=== PATIENT | female | born 1950 | race Caucasian/White ===

== ENCOUNTER 2019-10-03 12:05 | Day surgery (SDC) | payer MEDICARE, MEDICAID ==
[~2019-10-03 12:05] MED LIST: CHONDR SU A NA/HYALUR INTRAOC KIT (SURGICARE) ONE; EPINEPHRINE INJ/PF 1 MG/1 ML AMPULE ONE; KETOROLAC TROMETHAMINE 0.45% 4 DROP/0.4 ML DROPERETTE OD PRN; LIDOCAINE 1% INJ-PF (10 MG/ML) 30 ML SDV ONE
[2019-10-03] MEDS: TROPICAMIDE 1% OPH SOLN 15 ML OD PRN ×3 (12:45→13:18)
[2019-10-03] MEDS: TETRACAINE HCL 0.5% OPH SOLN 4 ML OD PRN ×3 (12:45→13:21)
[2019-10-03] MEDS: BESIFLOXACIN HCL 0.6% OPH SUSP 5 ML BOTTLE OD PRN ×4 (12:46→14:06)
[2019-10-03] MEDS: CYCLOPENTOLATE 0.2%/PHENYLEPHRINE 1% OPH SOLN 2 ML OD PRN ×3 (12:47→13:18)
[2019-10-03] MEDS ORDERED: MIDAZOLAM 2 MG/2 ML INJ ONE (12:56)
[2019-10-03] MEDS ORDERED: CHONDR SU A NA/HYALUR SOD 0.5 ML DISP.SYRIN ONE (13:53)
[2019-10-03] MEDS: DORZOLAMIDE HCL 2%/TIMOLOL MALEAT 0.5% OPH SOLN 10 ML OD PRN ×2 (14:06)
--- NOTE | 2019-10-04 22:38 | Operative Report ---
Operative Report-[facility] Operative Report: PREOPERATIVE DIAGNOSIS: Nuclear, cortical and posterior subcapsular cataract, right eye POSTOPERATIVE DIAGNOSIS: Nuclear, cortical and posterior subcapsular cataracts, right eye PROCEDURE: Phacoemulsification and posterior chamber intraocular lens implant, right eye PROCEDURE DATE: [October 03, 2019] SURGEON: Joey Beatty MD Next PRODUCT/DEVICE TECHNOLOGIST: [Hedy] ANESTHESIA: Topical with IV sedation next COMPLICATIONS: None TISSUE TO PATHOLOGY: None ESTIMATED BLOOD LOSS: None INDICATION FOR SURGERY: [Ms. Mares is a 69 year old female] Who presents to our clinic complaining of difficulty seeing, to read and drive due to blurry vision in both eyes. On examination, she was found to have best corrected visual acuity of [20/50] in the right eye. Ophthalmoscopy revealed a [+2] nuclear, [+2] corneal degeneration, [+1] posterior subcapsular cataract in the right eye with normal appearing cornea, vitreous, retina and optic nerve. I discussed the findings of the exam with the patient. We discussed the risks, benefits and alternatives of cataract extraction and intraocular lens implant in the right eye as a means of improving her vision. Risks that were discussed with the patient include infection, bleeding, retinal detachment and possible need for additional surgery. The patient understands that she may need to wear glasses after surgery. After discussion, the patient indicated her interest in having this procedure performed by signing an informed witness consent form. REPORT OF PROCEDURE: On the day of surgery, the patient was given a topical application to the right eye to consist of drop of Tetracaine 0.5%, tropicamide 1%, Cyclomidril, Besivance 0.6% and Acular 0.45%. The patient was then taken to the operating room in a supine position in a standard eye bed. Intravenous sedation was administered and she was prepped and draped in the standard fashion. A timeout was performed to confirm the surgical site. Attention was directed to the right eye where a paracentesis was created at the 11:30 position at the corneal limbus with a 15 degree blade. The anterior chamber was filled with 0.3 mL of 1% methylparaben free lidocaine and after 30 seconds the anterior chamber was filled with viscoelastic material. A 3 plane corneal incision was then made at the 9 o'clock position at the cornea limbus with a keratome. A continuous curvilinear capsulorrhexis was then made in the anterior capsule of the lens with a cystotome. The lens was hydrodissected using balanced saline solution. The lens nucleus was then removed by phacoemulsification using the stop and chop technique. CDE [7.71]. The remaining cortical material was then removed from the posterior capsular bag using irrigation and aspiration. The posterior capsule bag was filled with viscoelastic material and a lens implant was inserted into the posterior capsule bag. I have chosen for this case is a one piece acrylic lens from [employer] model [SN60WF], serial number [[id number]], lens power [23.5]. The lens was removed from its package, inspected and found to be free of defects it was loaded into a [employer] D insert er. The marketing operations assistant was passed through the temporal wound and the lens was advanced into the posterior capsular bag. The lens implant was centered in the posterior capsular bag with the Vishal spatula the viscoelastic material was removed from the eye using irrigation and aspiration. The wounds were closed by stromal hydration and they were tested with the Weck-Craina sponges and found to have no leaks. Intraocular pressure was assessed by manual palpitation found to be with in the physiologic range. The drape and speculum were removed. Drops of Durezol, Combigan and gatifloxacin were instilled in the right eye. The patient was then taken to the recovery room in good condition. The patient tolerated the procedure very well. The patient was given a prescription for gatifloxacin, Durezol and Ilervo to use every 2 hours while awake today. She will return my clinic tomorrow for follow-up evaluation.
== END 2019-10-03 14:48 | disposition home or self-care (01) ==
LOC: SC 12:05
PROVIDERS: ATTEND Ophthalmology
DX: H25.811 Combined forms of age-related cataract, right eye (principal); Z80.0 Family history of malignant neoplasm of digestive organs; Z87.891 Personal history of nicotine dependence
CPT/HCPCS: 66984; V2632; J2250; J3490 ×4; A9270; J0171; 142

== ENCOUNTER 2020-11-05 11:14 | Day surgery (SDC) | payer MEDICARE, MEDICAID ==
[~2020-11-05 11:14] MED LIST changes: -KETOROLAC TROMETHAMINE 0.45% 4 DROP/0.4 ML DROPERETTE OD PRN; -LIDOCAINE 1% INJ-PF (10 MG/ML) 30 ML SDV ONE; +LIDOCAINE 1%/PHENYLEPHRINE 1.5% 1 ML VIAL ONE
[2020-11-05] MEDS ORDERED: MIDAZOLAM 2 MG/2 ML INJ ONE ×2 (11:18→12:31)
[2020-11-05] MEDS ORDERED: ONDANSETRON HCL INJ/PF 4 MG/2 ML SDV ONE (11:18)
[2020-11-05] MEDS ORDERED: FENTANYL CITRATE INJ/PF 100 MCG/2 ML AMPUL ONE (11:18)
[2020-11-05] MEDS: TETRACAINE HCL 0.5% OPH SOLN 4 ML OS PRN ×3 (11:40→12:12)
[2020-11-05] MEDS: TROPICAMIDE 1% OPH SOLN 15 ML OS PRN ×3 (11:40→12:00)
[2020-11-05] MEDS: BESIFLOXACIN HCL 0.6% OPH SUSP 5 ML BOTTLE OS PRN ×4 (11:40→12:53)
[2020-11-05] MEDS: CYCLOPENTOLATE 0.2%/PHENYLEPHRINE 1% OPH SOLN 2 ML OS PRN ×3 (11:40→12:00)
[2020-11-05] MEDS ORDERED: KETOROLAC TROMETHAMINE 0.45% 4 DROP/0.4 ML DROPERETTE OS PRN (12:15)
[2020-11-05] MEDS: PREDNISOLONE ACETATE 1% OPH SUSP 5 ML OS PRN ×2 (12:53)
[2020-11-05] MEDS: DORZOLAMIDE HCL 2%/TIMOLOL MALEAT 0.5% OPH SOLN 10 ML OS PRN ×2 (12:53)
[2020-11-05] MEDS ORDERED: HYALURONATE SODIUM SYRINGE 0.55 ML ONE (13:02)
--- NOTE | 2020-11-05 20:23 | Operative Report ---
Operative Report-[facility] Operative Report: DATE OF SURGERY: [November 05, 2020] PREOPERATIVE DIAGNOSIS: NUCLEAR, CORTICAL, AND POSTERIOR SUBCAPSULAR CATARACTS IN THE LEFT EYE POSTOPERATIVE DIAGNOSIS: NUCLEAR, CORTICAL, AND POSTERIOR SUBCAPSULAR CATARACTS IN THE LEFT EYE, WITH SMALL PUPIL OPERATION: PHACOEMULSIFICATION AND POSTERIOR CHAMBER INTRAOCULAR LENS IMPLANT WITH A MALYUGIN RING TO EXPAND THE PUPIL IN THE LEFTEYE SURGEON: Joey Beatty MD DRIP PUMPER: [Alie] ANESTHESIA: Topical with IV sedation ESTIMATED BLOOD LOSS: None TISSUE REMOVED OR ALTERED: None COMPLICATIONS: None INDICATIONS FOR SURGERY: [Ms. Mares is a 70 year old female] who presented to our clinic complaining of difficulty seeing to read, to drive and to play golf. On examination he was found to have a best corrected visual acuity of 20/30 and with glare 20/60 He was also found to have a 2+ nuclear 2+ cortical 2+ posterior subcapsular cataract In the left eye. We discussed the risks, benefits and alternatives of cataract extraction and intraocular lens implant as a means of improving his vision. Risks that were presented to the patient included infection, bleeding, retinal detachment, persistent corneal swelling and possible need for additional surgery. And I also explain to the patient may need to wear glasses after surgery. After our discussion she indicated his interest in having this procedure performed by signing and informed, witnessed consent form.] PROCEDURE: On the day of surgery, the patient was given a topical application to the left eye while in the preop holding area that consist of lidocaine jelly, cyclopentolate, Mydriacyl, phenylephrine and Tetracaine. The patient was taken to the operating room in the supine position in a standard eye bed. Intravenous sedation was administered and the patient was prepped and draped in the standard ophthalmic fashion in the operating room. Timeout was performed. Attention was directed to the right eye, where paracentesis was created at the 5:30 position at the limbus with a 15 degree blade. The anterior chamber was filled with 0.3 mL's of 1% methylparaben free lidocaine, and after 30 seconds, the anterior chamber was filled with viscoelastic material. A 3-plane corneal incision was then made with a nela keratome at 3 o'clock position at the limbus. Despite use of the dilating drops, the inner chamber lidocaine, and viscoelastic material, the pupil remained dilated only to about [4] mm in diameter. I chose to use a Malyugin ring to expand the pupil for better visualization of the lens during the remainder of the surgery. The [6.25] mm Malyugin was removed from package inspected and found to be free of defects. It was loaded into its hardwood floor finisher. The tip of the hardwood floor finisher was passed through that temporal limbal wound and through this the site the ring was advanced into the anterior chamber, where it grasped the iris at the pupil margin at the 3 o'clock, 6 o'clock, 9 oclock and 12 o'clock positions, and this extended the pupil to a [] mm diameter. A continuous curvilinear capsulorrhexis was then made in the anterior capsule of the lens with a set of cystotome. The lens was hydrodissected using balanced saline solution and the lens nucleus was removed by phacoemulsification using the divide and conquer technique. The CDE was [9.80]. The cortical material was removed from the posterior capsular bag with irrigation and aspiration. The posterior capsular bag was then filled with viscoelastic material, and a lens implant was inserted into the posterior capsular bag. The lens chosen for this case is a one-piece acrylic lens from [[employer] model SN60WF, serial number [id number]]. The lens was removed and inspected, and found to be without defects. It was loaded into an [[place] D] hardwood floor finisher. The hardwood floor finisher was passed through temporal limb of the wound into the posterior capsular bag. It was positioned in the posterior capsular bag the Whitmer spatula. There viscoelastic material was then removed from the anterior chamber and the posterior capsule bag by irrigation and aspiration. The Malyugin ring was disengaged from the iris with Sinskey hook, and it was removed from the temporal lobe of the wound with the Sinskey hook. The viscoelastic material was then removed by irrigation and aspiration. The wounds were closed by stromal hydration. They were tested with Weck-Carina sponges and found to have no leaks. The intraocular pressure was assessed by manual palpation and found to be with in the physiologic range. The drapes and speculum were removed. Periocular skin was washed with a wet followed by a dry 4 x 4 gauze and drops of Besivance, Durezol, and Combigan were installed in the inferior cul-de-sac of the right eye. The eye was covered with a Sotelo shield. The patient was taken to the recovery room in good condition. The patient tolerated the procedure well. The patient was given a prescription for Zymaxid to use every 2 hours while awake in the right eye, and he will return to my clinic for follow-up evaluation with me the day after surgery.
== END 2020-11-05 13:27 | disposition home or self-care (01) ==
LOC: SC 11:14
PROVIDERS: ATTEND Ophthalmology
DX: H25.812 Combined forms of age-related cataract, left eye (principal); Z87.891 Personal history of nicotine dependence
CPT/HCPCS: 66982; 00142; V2632; J2250; J3490 ×3; A9270; J0171; J3010; J2405; 142